=== PATIENT | male | born 1950 | race African-American/Black ===

== ENCOUNTER 2021-09-09 16:58 | Emergency (ER) | payer MEDICARE, OTHER ==
[~2021-09-09] VITALS: Ht 185.4 cm; Wt 81.6 kg
[2021-09-09 16:59] VITALS: BP 135/84
[2021-09-09] MEDS ORDERED: ACETAMINOPHEN 500 MG TAB PO ONE (20:45)
[2021-09-09] MEDS ORDERED: METHOCARBAMOL 500 MG TAB PO ONE (20:45)
== END 2021-09-09 22:16 | disposition home or self-care (01) ==
LOC: ER 16:58 → EDBD 16:58 → ER 22:16
DX: S13.4XXA Sprain of ligaments of cervical spine, initial encounter (principal); S46.912A Strain of unspecified muscle, fascia and tendon at shoulder and upper arm level, left arm, initial encounter; J45.909 Unspecified asthma, uncomplicated; V43.52XA Car driver injured in collision with other type car in traffic accident, initial encounter; Y93.89 Activity, other specified; Y92.488 Other paved roadways as the place of occurrence of the external cause; Y99.8 Other external cause status
CPT/HCPCS: 70450; 71250; 72125; 73030; 74176